=== PATIENT | male | born 1935 | race Caucasian/White ===

== ENCOUNTER 2018-10-27 19:15 | Emergency (ER) | payer OTHER ==
[~2018-10-27] VITALS: Ht 180.3 cm; Wt 88.5 kg
[2018-10-27] MEDS ORDERED: TETANUS-DIPTH-ACEL PERTUSSIS 0.5ML SYRG IM ONE (19:45)
[2018-10-27] MEDS ORDERED: ONDANSETRON HCL 4 MG/2 ML VIAL IV ONE (19:45)
[2018-10-27] MEDS ORDERED: MORPHINE SULF INJ 2 MG/ML SYRINGE 1ML IV ONE (19:45)
[2018-10-27 20:10] LABS: Basophils # (auto) 0 uL; Eosinophils # (auto) 0.2 uL; Hemoglobin 11.9 g/dL (13.5-17.5); Lymphocytes # (auto) 0.8 uL; Monocytes # (auto) 0.8 uL; White Blood Cell 8.6 10^3/uL (4.4-10.8)
[2018-10-27 20:12] LABS: Basophils % (auto) 0.5 % (0.0-2.0); Hematocrit 38.2 % (41.0-53.0); Lymphocytes % (auto) 9.1 % (10.0-50.0); Mean Corpuscular Hemoglobin 25.7 pg (28.0-32.0); Mean Corpuscular Hgb Conc. 31.1 g/dL (32.0-36.0); Mean Corpuscular Volume 82.7 fL (80.0-100.0); Neutrophils # (auto) 6.8 uL; Neutrophils % (auto) 79.4 % (37.0-80.0); Platelet Count (auto) 208 10^3/uL (140-450); Red Blood Cells 4.62 10^6/uL (4.5-5.90)
[2018-10-27 20:15] LABS: Red Cell Distribution Width 20.9 % (11.8-14.3)
[2018-10-27 20:19] LABS: Albumin 3.1 g/dL (3.4-5.0); Anion Gap 8 (5-15); Blood Urea Nitrogen 37 mg/dL (7-18); Calcium 8.3 mg/dL (8.5-10.1); Carbon Dioxide 19 mmol/L (21-32); Chloride 112 mmol/L (98-107); Glucose 92 mg/dL (74-106); Magnesium 2.5 mg/dL (1.6-2.6); Sodium 139 mmol/L (136-145)
[2018-10-27 20:25] LABS: Alanine Aminotransferase 15 U/L (16-61); Alkaline Phosphatase 103 U/L (45-117); Aspartate Aminotransferase 16 U/L (15-37); BUN/Creatinine Ratio 22.8; Bilirubin, Total 0.4 mg/dL (0.2-1.0); GFR African American 52 mL/min; GFR Non-African American 43 mL/min; Total Protein 6.3 g/dL (6.4-8.2)
[2018-10-27] MEDS ORDERED: LIDOCAINE 1% HCL (LOCAL ANESTH.) INJ 20ML MDV ID ONE (21:15)
[2018-10-27 21:25] LABS: Urine WBC None Seen /hpf (0 - 3)
[2018-10-27 21:38] LABS: Urine Bacteria NONE SEEN /hpf (None Seen); Urine Blood Negative /uL (Negative); Urine Specific Gravity 1.008 (1.001-1.035)
[2018-10-27 21:46] LABS: Amphetamine Screen, Urine NEGATIVE (NEGATIVE); Barbiturate Scree,Urine NEGATIVE (NEGATIVE); Benzodiazephine Screen, Urine NEGATIVE (NEGATIVE); Cannabinoid Screen, Urine POSITIVE (NEGATIVE); Cocaine Screen, Urine NEGATIVE (NEGATIVE); Phencyclidine Screen, Urine NEGATIVE (NEGATIVE)
[2018-10-27 21:53] LABS: Opiate Scree,Urine NEGATIVE (NEGATIVE)
[2018-10-27] MEDS ORDERED: cefTRIAXone 1GM/50ML D5W 50 ML IV ONE (22:15)
[2018-10-27] MEDS ORDERED: BACITRACIN-POLYMYXIN B TOPICAL OINT UD TOP ONE (22:47)
[2018-10-27 23:15] VITALS: BP 101/62
== END 2018-10-27 23:52 | disposition home or self-care (01) ==
LOC: EDBD 19:15 → ER 19:20
DX: S61.214A Laceration without foreign body of right ring finger without damage to nail, initial encounter (principal); S83.91XA Sprain of unspecified site of right knee, initial encounter; I10 Essential (primary) hypertension; S20.211A Contusion of right front wall of thorax, initial encounter; W19.XXXA Unspecified fall, initial encounter; Y93.89 Activity, other specified; Y92.89 Other specified places as the place of occurrence of the external cause; Y99.8 Other external cause status
CPT/HCPCS: 11730; 12001; 36415; 71045; 72125; 73120; 73562; 80053; 80307; 81001; 83735; 83880; 84484; 85025; 90471; 90715; 93005; 96365; 96375; 99284; J0696; J2001; J2270; J2405

== ENCOUNTER 2018-12-03 09:35 | Inpatient (IN) | payer OTHER ==
[~2018-12-03] VITALS: Ht 175.3 cm; Wt 90.7 kg
[2018-12-03] MEDS: SODIUM BICARBONATE 50ML VIAL 50 ML in SOD CHL 0.45% 1,000 ML IV SCH ×2 (01:10→14:56)
[2018-12-03] MEDS ORDERED: SODIUM CHLORIDE 0.9% 1,000 ML IVB ONE (10:17)
[2018-12-03] MEDS ORDERED: SODIUM CHLORIDE 0.9% 1,000 ML IV ONE (10:17)
[2018-12-03] MEDS ORDERED: PIPERACILLIN-TAZOB 3.375GM 100 ML IV ONE (10:30)
[2018-12-03 11:05] LABS: Urine Amorphous Crystal FEW /hpf (None Seen); Urine Bacteria FEW /hpf (None Seen); Urine Blood Negative /uL (Negative); Urine Hyaline Cast FEW /lpf (0 - 2); Urine Specific Gravity 1.022 (1.001-1.035); Urine WBC 1 /hpf (0 - 3)
[2018-12-03 11:25] LABS: Hemoglobin 12.4 g/dL (13.5-17.5); Mean Corpuscular Hemoglobin 26.7 pg (28.0-32.0)
[2018-12-03 11:27] LABS: Hematocrit 39.1 % (41.0-53.0); Mean Corpuscular Hgb Conc. 31.6 g/dL (32.0-36.0); Mean Corpuscular Volume 84.7 fL (80.0-100.0); Platelet Count (auto) 216 10^3/uL (140-450); Red Blood Cells 4.62 10^6/uL (4.5-5.90); White Blood Cell 13.9 10^3/uL (4.4-10.8)
[2018-12-03 11:29] LABS: Red Cell Distribution Width 20.5 % (11.8-14.3)
[2018-12-03] MEDS ORDERED: LORazepam 2MG/ML-1ML VIAL IV ONE (11:30)
[2018-12-03 11:31] LABS: Basophils % (manual) 0 (0.0-2.0); Blast Cells 0; Eosinophils % (manual) 0 (0-7); Myelocytes % 0; Promyelocytes % 0; Reactive Lymphocytes 0
[2018-12-03 11:41] LABS: INR 1.14 (0.9-1.15); Partial Thromboplastin Time 32.7 sec (23.64-32.05)
[2018-12-03] MEDS: NOREPINEPHRINE 8 MG/250ML KIT 250 ML IV SCH ×2 (11:47→17:06)
[2018-12-03 11:48] LABS: Alanine Aminotransferase 42 U/L (16-61); Albumin 2.6 g/dL (3.4-5.0); Anion Gap 14 (5-15); Aspartate Aminotransferase 78 U/L (15-37); BUN/Creatinine Ratio 21.1; Blood Alcohol < 3.0 mg/dL (0-5); Calcium 8.1 mg/dL (8.5-10.1); Carbon Dioxide 17 mmol/L (21-32); Chloride 102 mmol/L (98-107); GFR African American 17 mL/min; GFR Non-African American 14 mL/min; Glucose 75 mg/dL (74-106); Potassium 4.7 mmol/L (3.5-5.1); Sodium 133 mmol/L (136-145)
[2018-12-03 11:52] LABS: Alkaline Phosphatase 233 U/L (45-117); Bilirubin, Total 1.3 mg/dL (0.2-1.0); Lactic Acid w/Reflex 3.9 mmol/L (0.4-2.0); Total Protein 6.7 g/dL (6.4-8.2)
[2018-12-03 11:54] LABS: Blood Urea Nitrogen 92 mg/dL (7-18)
[2018-12-03 12:21] LABS: Band Neutrophils % (manual) 45; Lymphocytes % (manual) 1 (10.0-50.0); Metamyelocytes % 1; Monocytes % (manual) 6 (0-12)
[2018-12-03] MEDS ORDERED: SODIUM CHLORIDE 0.9% 2,700 ML IV ONE (12:45)
[2018-12-03] MEDS ORDERED: VANCOMYCIN 1GM/250ML 250 ML IV ONE (12:45)
[2018-12-03] MEDS ORDERED: HYDROcodone-ACET 5/325MG TAB PO PRN (13:15)
[2018-12-03] MEDS ORDERED: NITROGLYCERIN 0.4 MG SL TAB SL PRN (13:15)
[2018-12-03] MEDS ORDERED: IPRATROPIUM BROM 0.5 MG/2.5ML INH SOL NEB PRN (13:15)
[2018-12-03] MEDS ORDERED: SODIUM BICARBONATE 8.4 % INJ 50ML VIAL IV ONE ×2 (13:15→20:30)
[2018-12-03] MEDS ORDERED: ALBUTEROL SULF 2.5 MG/0.5ML(0.5%) NEB SOLN NEB PRN (13:15)
[2018-12-03] MEDS ORDERED: ACETAMINOPHEN 500 MG TAB PO PRN (13:15)
[2018-12-03] MEDS ORDERED: VANCOMYCIN PER PHARMACY 0 MG IV SCH (13:15)
[2018-12-03] MEDS ORDERED: MORPHINE SULF INJ 2 MG/ML SYRINGE 1ML IV PRN ×2 (13:15)
[2018-12-03] MEDS ORDERED: ONDANSETRON HCL 4 MG/2 ML VIAL IV PRN (13:15)
[2018-12-03] MEDS: metroNIDAZOLE 500MG/100ML 100 ML IV SCH ×2 (14:45→22:25)
[2018-12-03] MEDS ORDERED: LORazepam 2MG/ML-1ML VIAL IV PRN (14:45)
[2018-12-03 15:55] VITALS: BP 119/68
[2018-12-03] MEDS: FAMOTIDINE (10MG/ML) 2ML VL IV SCH (23:44)
[2018-12-03] MEDS: ACETYLCYSTEINE 10 %(100MG/ML) SOL 4ML NEB SCH (23:55)
[2018-12-03] MEDS: ALBUTEROL SULF 2.5 MG/0.5ML(0.5%) NEB SOLN NEB SCH (23:55)
[2018-12-03] MEDS: IPRATROPIUM BROM 0.5 MG/2.5ML INH SOL NEB SCH (23:55)
[2018-12-04] VITALS (42 sets, daily range): BP systolic 71–275; BP diastolic 16–232
[2018-12-04] MEDS ORDERED: SODIUM BICARBONATE 8.4 % INJ 50ML VIAL IV ONE (01:09)
[2018-12-04 04:53] LABS: Basophils # (auto) 0 uL; Basophils % (auto) 0.1 % (0.0-2.0); Eosinophils # (auto) 0 uL; Eosinophils % (auto) 0.6 % (0.0-7.0); Hematocrit 39.5 % (41.0-53.0); Hemoglobin 12.8 g/dL (13.5-17.5); Lymphocytes # (auto) 0.2 uL; Lymphocytes % (auto) 3.5 % (10.0-50.0); Mean Corpuscular Hemoglobin 27.2 pg (28.0-32.0); Mean Corpuscular Hgb Conc. 32.5 g/dL (32.0-36.0); Mean Corpuscular Volume 83.7 fL (80.0-100.0); Monocytes # (auto) 0.3 uL; Monocytes % (auto) 5.8 % (0.0-12.0); Nucleated Red Blood Cells % 0.3 %; Platelet Count (auto) 198 10^3/uL (140-450); Red Blood Cells 4.71 10^6/uL (4.5-5.90); White Blood Cell 5.5 10^3/uL (4.4-10.8)
[2018-12-04 04:59] LABS: Red Cell Distribution Width 20.6 % (11.8-14.3)
[2018-12-04 05:05] LABS: INR 1.26 (0.9-1.15); Partial Thromboplastin Time 41.4 sec (23.64-32.05)
[2018-12-04 05:09] LABS: Albumin 2.1 g/dL (3.4-5.0); Anion Gap 16 (5-15); Aspartate Aminotransferase 143 U/L (15-37); Calcium 6.7 mg/dL (8.5-10.1); Carbon Dioxide 16 mmol/L (21-32); Chloride 105 mmol/L (98-107); Glucose 61 mg/dL (74-106); Magnesium 2.2 mg/dL (1.6-2.6); Potassium 4.8 mmol/L (3.5-5.1); Sodium 137 mmol/L (136-145)
[2018-12-04 05:13] LABS: Alanine Aminotransferase 52 U/L (16-61); Alkaline Phosphatase 192 U/L (45-117); Bilirubin, Total 1.2 mg/dL (0.2-1.0); Blood Urea Nitrogen 106 mg/dL (7-18); Cholesterol < 50 mg/dL (< 200); GFR African American 17 mL/min; GFR Non-African American 14 mL/min; HDL Cholesterol 10 mg/dL (40-59); LDL Cholesterol 7 mg/dL (< 100); Total Protein 5.8 g/dL (6.4-8.2); Triglycerides 128 mg/dL (< 150)
[2018-12-04 05:14] LABS: BUN/Creatinine Ratio 25.1
[2018-12-04] MEDS: metroNIDAZOLE 500MG/100ML 100 ML IV SCH ×2 (06:14→14:00)
[2018-12-04] MEDS: IPRATROPIUM BROM 0.5 MG/2.5ML INH SOL NEB SCH ×2 (07:03→11:41)
[2018-12-04] MEDS: ACETYLCYSTEINE 10 %(100MG/ML) SOL 4ML NEB SCH ×2 (07:03→11:41)
[2018-12-04] MEDS: ALBUTEROL SULF 2.5 MG/0.5ML(0.5%) NEB SOLN NEB SCH ×2 (07:03→11:41)
[2018-12-04] MEDS: NOREPINEPHRINE 8 MG/250ML KIT 250 ML IV SCH (08:24)
[2018-12-04] MEDS ORDERED: cefTRIAXone 1GM/50ML D5W 50 ML IV SCH (09:00)
[2018-12-04] MEDS: FAMOTIDINE (10MG/ML) 2ML VL IV SCH (09:35)
[2018-12-04] MEDS ORDERED: ENOXAPARIN SOD 30 MG/0.3 ML SYRINGE SC SCH (10:00)
[2018-12-04] MEDS: SODIUM BICARBONATE 50ML VIAL 50 ML in SOD CHL 0.45% 1,000 ML IV SCH (10:48)
[2018-12-04] MEDS ORDERED: PIPERACILLIN-TAZOB 2.25GM 50 ML IV ONE (11:00)
[2018-12-04] MEDS ORDERED: SODIUM BICARBONATE 50ML VIAL 50 ML in SOD CHL 0.45% 1,000 ML IV SCH (12:00)
[2018-12-04 12:11] LABS: Lactic Acid w/Reflex 5.9 mmol/L (0.4-2.0)
[2018-12-04 12:15] LABS: BUN/Creatinine Ratio 24.8; Calcium 6.6 mg/dL (8.5-10.1)
[2018-12-04 12:30] LABS: Potassium 5.7 mmol/L (3.5-5.1)
[2018-12-04] MEDS ORDERED: PIPERACILLIN-TAZOB 2.25GM 50 ML IV SCH (14:00)
[2018-12-04 14:24] LABS: Creatinine, Urine 125 mg/dL (30.0-125.0); Sodium Urine 36 mmol/L (40-220)
== END 2018-12-04 19:35 | disposition expired | DRG 871 ==
LOC: EDBD 09:35 → ER 09:35 → OVERFLOW 09:36 → ICU WEST 23:46
PROVIDERS: ADMIT Nurse Practitioner Acute Care; ATTEND Internal Medicine
DX: A41.9 Sepsis, unspecified organism (principal); G93.41 Metabolic encephalopathy; N17.0 Acute kidney failure with tubular necrosis; I21.A1 Myocardial infarction type 2; J96.00 Acute respiratory failure, unspecified whether with hypoxia or hypercapnia; I50.43 Acute on chronic combined systolic (congestive) and diastolic (congestive) heart failure; J69.0 Pneumonitis due to inhalation of food and vomit; R65.21 Severe sepsis with septic shock; E44.0 Moderate protein-calorie malnutrition; F05 Delirium due to known physiological condition; I13.0 Hypertensive heart and chronic kidney disease with heart failure and stage 1 through stage 4 chronic kidney disease, or unspecified chronic kidney disease; N18.4 Chronic kidney disease, stage 4 (severe); Z66 Do not resuscitate; E86.0 Dehydration; F03.90 Unspecified dementia, unspecified severity, without behavioral disturbance, psychotic disturbance, mood disturbance, and anxiety; K57.30 Diverticulosis of large intestine without perforation or abscess without bleeding; K52.9 Noninfective gastroenteritis and colitis, unspecified; M10.9 Gout, unspecified; M19.90 Unspecified osteoarthritis, unspecified site; E78.5 Hyperlipidemia, unspecified; H40.9 Unspecified glaucoma; Z96.651 Presence of right artificial knee joint; Z68.29 Body mass index [BMI] 29.0-29.9, adult
CPT/HCPCS: 36415; 36556; 36600; 51702; 70450; 71045; 74176; 76775; 80048; 80053; 80061; 80202; 80320; 81001; 82570; 82805; 83605; 83735; 83880; 84300; 84484; 85007; 85025; 85027; 85610; 85730; 87040; 87045; 87081; 87086; 87427; 87493; 93306; 94640; 96365; 96366; 96368; 96375; 99291; G0378; J0696; J2543; J3490